=== PATIENT | female | born 1990 | race Two or more races ===

== ENCOUNTER 2022-12-03 14:29 | Emergency (ER) | payer OTHER ==
[~2022-12-03] VITALS: Ht 172.7 cm; Wt 72.6 kg
== END 2022-12-03 17:13 | disposition home or self-care (01) ==
LOC: ER 14:29
DX: L03.115 Cellulitis of right lower limb (principal); F41.8 Other specified anxiety disorders; L02.611 Cutaneous abscess of right foot
CPT/HCPCS: 96372; 99284; J0696